=== PATIENT | female | born 1990 | race Caucasian/White ===

== ENCOUNTER 2017-01-10 18:44 | Emergency (ER) | payer BC, SELFPAY ==
[2017-01-10] MEDS ORDERED: ALLEGRA-D 24 H1 EACH PO (18:51)
[2017-01-10 19:14] LABS: URINE BILIRUBIN NEGATIVE (NEG); URINE BLOOD SMALL (NEG); URINE GLUCOSE (UA) NEGATIVE (NEG); URINE KETONE NEGATIVE (NEG); URINE LEUKOCYTE ESTERASE POSITIVE (NEG); URINE NITRITE NEGATIVE (NEG); URINE PROTEIN NEGATIVE (NEG); URINE SPECIFIC GRAVITY 1.005 (1.003-1.030)
[2017-01-10 19:20] LABS: URINE COLOR YELLOW
[2017-01-10 19:21] LABS: URINE APPEARANCE CLEAR
[2017-01-10 19:30] LABS: URINE EPITHELIAL CELLS 0-1 /[HPF] (0-10)
[2017-01-10 19:31] LABS: URINE BACTERIA 1+
[2017-01-10] MEDS ORDERED: KEFLEX500 M4 PO (19:46)
== END 2017-01-10 19:52 ==
LOC: EDMED 18:44
PROVIDERS: Emergency Medicine
DX: N39.0 Urinary tract infection, site not specified (principal)